=== PATIENT | female | born 1975 | race Caucasian/White ===

== ENCOUNTER → 2018-06-23 | Outpatient (CLI) | payer OTHER ==
[~2018-06-23] MED LIST: HYDR-3240 PO; LEVO100T5 PO; LEVO125T PO
== END | disposition home or self-care (01) ==
LOC: STAR 08:22
PROVIDERS: ATTEND Surgery
DX: Z02.9 Encounter for administrative examinations, unspecified (principal)

== ENCOUNTER 2018-06-27 10:26 | Inpatient (IN) | payer OTHER ==
[2018-06-23 08:56] VITALS: BP 112/80
[~2018-06-27] VITALS: Ht 177.8 cm; Wt 76.9 kg
[~2018-06-27 10:26] MED LIST changes: +BUPIVACAINE/PF 0.5% ONE; +EPINEPHRINE 1 MG/ML, 1ML ONE; -HYDR-3240 PO; -LEVO125T PO
[2018-06-27] MEDS ORDERED: LACTATED RINGERS 1,000 ML IV SCH (10:51)
[2018-06-27] MEDS ORDERED: ACETAMINOPHEN 500 MG TABLET PO ONE (11:00)
[2018-06-27] MEDS ORDERED: GABAPENTIN 300 MG CAPSULE PO ONE (11:00)
[2018-06-27 11:25] LABS: HCG UR SG 1.017 (1.003-1.030)
[2018-06-27] MEDS ORDERED: OXYcodone 5 MG/5 ML ORAL.SOL UDC PO PRN (11:30)
[2018-06-27] MEDS ORDERED: FENTANYL PF 100 MCG/2ML IV PRN (11:30)
[2018-06-27] MEDS ORDERED: HALOPERIDOL 5 MG/ML IV PRN (11:30)
[2018-06-27] MEDS ORDERED: HYDROmorphone 2 MG/ML, 1ML IVPush PRN (11:30)
[2018-06-27] MEDS ORDERED: DIPHENHYDRAMINE 50 MG/ML, 1ML IVPush PRN (11:30)
[2018-06-27] MEDS ORDERED: PROMETHAZINE 25 MG/ML, 1ML IV PRN (11:30)
[2018-06-27] MEDS ORDERED: ONDANSETRON 2MG/ML, 2ML ONE (13:27)
[2018-06-27] MEDS ORDERED: SUCCINYLCHOLINE 20 MG/ML, 10ML ONE (13:27)
[2018-06-27] MEDS ORDERED: DEXAMETHASONE 4 MG/ML, 1ML ONE (13:27)
[2018-06-27] MEDS ORDERED: PROPOFOL 10 MG/ML, 20ML ONE (13:27)
[2018-06-27] MEDS ORDERED: ROCURONIUM 10 MG/ML,10ML ONE (13:27)
[2018-06-27] MEDS ORDERED: CEFAZOLIN 1,000 MG ONE (13:27)
[2018-06-27] MEDS ORDERED: ACETAMINOPHEN 325 MG TABLET PO PRN (17:00)
[2018-06-27] MEDS ORDERED: HYDROcodone/APAP 5/325 TABLET PO PRN (17:00)
[2018-06-27] MEDS ORDERED: hydrALAzine 20 MG/ML, 1ML IV PRN (17:00)
[2018-06-27] MEDS ORDERED: ACETAMINOPHEN 650 MG SUPP PR PRN (17:00)
[2018-06-27 17:05] VITALS: BP 131/79
[2018-06-27 20:46] VITALS: BP 124/78
[2018-06-27] MEDS: CALCIUM/VITAMIN D3 250-125 TABLET PO SCH (21:04)
[2018-06-27] MEDS: SODIUM CHLORIDE FLUSH 10ML SYR IVF SCH (21:05)
[2018-06-28 04:26] VITALS: BP 107/70
[2018-06-28 05:38] LABS: CALCIUM 8.5 mg/dL (8.5-10.1)
[2018-06-28] MEDS ORDERED: LEVOTHYROXINE 125 MCG TABLET PO SCH (06:00)
[2018-06-28] MEDS: CALCIUM/VITAMIN D3 250-125 TABLET PO SCH (08:05)
[2018-06-28] MEDS: SODIUM CHLORIDE FLUSH 10ML SYR IVF SCH (08:05)
[2018-06-28 08:58] VITALS: BP 121/78
[2018-06-28] MEDS ORDERED: HYDR-3240 PO (09:49)
[2018-06-28] MEDS ORDERED: LEVO125T PO (09:50)
== END 2018-06-28 10:27 | disposition home or self-care (01) | DRG 627 ==
LOC: OUT 10:26 → MERGE 12:15 → 4NOR 16:42 → OUT 17:18 → DCLOUNGE 06-28 10:18
PROVIDERS: ADMIT Surgery; ATTEND Surgery
PROC: 07B10ZZ Excision of Right Neck Lymphatic, Open Approach (ICD-10-PCS; 2018-06-27)
PROC: 4A11X4G Monitoring of Peripheral Nervous Electrical Activity, Intraoperative, External Approach (ICD-10-PCS; 2018-06-27)
PROC: 0GTK0ZZ Resection of Thyroid Gland, Open Approach (ICD-10-PCS; principal; 2018-06-27 12:15)
DX: E04.2 Nontoxic multinodular goiter (principal); E06.3 Autoimmune thyroiditis; E03.9 Hypothyroidism, unspecified; Z83.49 Family history of other endocrine, nutritional and metabolic diseases; Z80.6 Family history of leukemia; Z80.1 Family history of malignant neoplasm of trachea, bronchus and lung; Z72.89 Other problems related to lifestyle
CPT/HCPCS: 36415; 81025; 82310; 83970; 88305; 88307; 88331; G0378; J0171; J0690; J1100; J2405; J2704; J3490; J0330; J7120